=== PATIENT | female | born 1990 | race Caucasian/White ===

== ENCOUNTER 2016-04-17 17:00 | Emergency (ER) | payer MEDICAID ==
[~2016-04-17] VITALS: Ht 154.9 cm; Wt 61.7 kg
[~2016-04-17 17:00] MED LIST: ALPR.5T PO; AZIT-21 PO; AZTH250C PO; BENZ-13 PO; CEFP500T4 PO; CEFU500T PO; CLIN300C3 PO; DCS100C PO; DICL75TA2; FLUC100T PO; HDR2T PO; HYDR-2997; IBP600T1 PO; IBUP-1780 PO; LEVO500T78 PO; LOSA1TAB20 PO; METH5TAB PO; METR500T PO; MINO100T10 PO; MORP15TA30 PO; MORP60TA28; MTH10T PO; MUPI22OI2 TP; NAPR500T PO; NAPR500T3 PO; NF-ESOM40C; ONDN4T PO; OXYC-465 PO; PREG100C22 PO; PRM25T PO; PROP20TA5 PO; PROP40TA5 PO; QUET200T57; QUET50TA55 PO; SULF-222 PO; SULF1TAB35 PO; SULF1TAB38 PO; TRAM50TA2 PO; VNL75T PO
[2016-04-17] MEDS ORDERED: PROP40TA5 PO (17:25)
[2016-04-17] MEDS ORDERED: QUET300T2 PO (17:25)
[2016-04-17] MEDS ORDERED: SULF1TAB35 PO (17:25)
[2016-04-17] MEDS ORDERED: HALDOL PO (17:25)
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
[2016-04-17] MEDS ORDERED: LIDOCAINE/EPI 1%-1:100,000 (XYLOCAINE) 20ML INJ ONE (17:30)
[2016-04-17 17:35] VITALS: BP 158/111
== END 2016-04-17 17:36 | disposition home or self-care (01) ==
LOC: EDUNIT# 17:00 → ER 17:03
DX: N61.1 Abscess of the breast and nipple (principal); I10 Essential (primary) hypertension; Z79.899 Other long term (current) drug therapy
CPT/HCPCS: 87070; 87077; 87205; 99285

== ENCOUNTER → 2017-12-07 | Outpatient (CLI) | payer MEDICAID ==
[~2017-12-07] MED LIST changes: -BENZ-13 PO; +BENZ100C18 PO; +HALDOL PO; +NAPR-1071 PO; +NAPR-915 PO; -NAPR500T PO; -NAPR500T3 PO; +QUET300T2 PO
--- NOTE | 2017-12-07 13:55 | Diagnostic Imaging Report ---
INDICATION: survey. TECHNIQUE: Multiple real-time grayscale images were obtained over the gravid uterus. COMPARISON: None FINDINGS: There is a single live fetus in a cephalic presentation. heart rate was recorded at 132 beats per minute. The placenta is posterior. The amniotic fluid volume is normal. Cervical length is 4.4 cm. survey demonstrates the bladder and stomach to be unremarkable. The brain is unremarkable. There is a four-chamber heart. There is a three-vessel cord with normal insertion. The spine is unremarkable. There is some prominence of the renal pelvis bilaterally and findings suspicious for hydronephrosis. Followup is recommended. No other abnormalities are seen. Biometrical measurements are as follows: Biparietal 4.12 cm, age 18 weeks 4 days. Head circumference 15.05 cm, age 18 weeks 1 days. Abdominal circumference 13.63 cm, age 19 weeks 1 days. Femur length 3.32 cm, age 20 weeks 3 days. Sonographic estimate age: 19 weeks 1 days. Sonographic estimated date of delivery: 05/02/18. Estimated Weight: 296 gm (+/- 43 gm). LMP percentile: 75%. heart rate: 132 beats per minute. number: 1 of 1. IMPRESSION: Single IUP approximately 19 weeks 1 day gestational age. The estimated date of confinement sonographically is 05/02/2018. survey is unremarkable with the exception of possible bilateral hydronephrosis. Followup is recommended. Dictated by: Dictated on workstation # [id number]
== END ==
LOC: RAD 10:03
PROVIDERS: ATTEND Obstetrics & Gynecology
DX: Z36.89 Encounter for other specified antenatal screening (principal); Z3A.16 16 weeks gestation of pregnancy
CPT/HCPCS: 76805

== ENCOUNTER → 2018-04-05 | Outpatient (CLI) | payer MEDICAID ==
--- NOTE | 2018-04-05 13:24 | Diagnostic Imaging Report ---
INDICATION: Evaluate position. TECHNIQUE: Multiple real-time grayscale images were obtained over the gravid uterus. COMPARISON: 02/11/2018. FINDINGS: There is a single living intrauterine in breech presentation. Amniotic fluid index is 12.58. Placenta is posterior. There is no previa. The biometry correlates with gestational age of 35 weeks 5 days. Heart rate is 119 beats per minute and regular. Left kidney was not well visualized due to lie, although some mild hydronephrosis cannot be excluded. Remainder of the intra-abdominal structures are grossly unremarkable, although this is limited due to late gestational age. IMPRESSION: 1. Single living intrauterine with sonographically estimated gestational age of 35 weeks 5 days and estimated date of confinement of May 05, 2018. 2. Breech presentation with posterior placenta and no evidence of previa. 3. Questionable mild left hydronephrosis. Biometrical measurements are as follows: Biparietal 8.76 cm, age 35 weeks 3 days. Head circumference 33.48 cm, age 38 weeks 3 days. Abdominal circumference 30.51 cm, age 34 weeks 4 days. Femur length 6.68 cm, age 34 weeks 3 days. Sonographic estimate age: 35 weeks 5 days. Sonographic estimated date of delivery: 05/05/2018. Estimated Weight: 2548 gm (+/- 372 gm). LMP percentile: 23%. heart rate: 119 beats per minute. number: 1 of 1. Dictated by: Dictated on workstation # [id number]
== END ==
LOC: RAD 11:05
PROVIDERS: ATTEND Obstetrics & Gynecology
DX: O32.1XX0 Maternal care for breech presentation, not applicable or unspecified (principal); Z3A.35 35 weeks gestation of pregnancy
CPT/HCPCS: 76816

== ENCOUNTER 2018-04-11 11:59 | Outpatient (CLI) | payer MEDICAID ==
[~2018-04-11] VITALS: Ht 154.9 cm; Wt 93.6 kg
[2018-04-11] MEDS ORDERED: PREN-8 PO (12:18)
[2018-04-11] MEDS ORDERED: BUPR8TAB SL (12:18)
[2018-04-11 12:25] VITALS: BP 147/113
--- NOTE | 2018-04-11 13:20 | NUR ---
MESSAGE LEFT WITH DR. PETERSON NURSE REGARDING PT'S B/P.
== END 2018-04-11 13:25 | disposition home or self-care (01) ==
LOC: PREOP 11:59
PROVIDERS: ATTEND Obstetrics & Gynecology
DX: Z01.818 Encounter for other preprocedural examination (principal)
CPT/HCPCS: 87081

== ENCOUNTER 2018-04-12 10:55 | Inpatient (IN) | payer MEDICAID ==
[~2018-04-12] VITALS: Ht 154.9 cm; Wt 93.2 kg
[~2018-04-12 10:55] MED LIST changes: +BUPR8TAB SL; +PREN-8 PO
--- NOTE | 2018-04-12 10:55 | NUR ---
CLEM MUNOZ S presented to unit via AMBULATORY from HOME, accompanied by FAMILY FOR SCHEDULED DELIVERY. CLEM MUNOZ S weighed, gowned, voided, and to bed. EFHM and TOCO applied, VS taken. CLEM MUNOZ S oriented to bed controls, call light, TV, heat, and A/C controls.
[2018-04-12 11:11] VITALS: BP 137/93
[2018-04-12] MEDS ORDERED: metroNIDAZOLE 500MG/100ML IVPB 100 ML ONE (11:31)
[2018-04-12] MEDS ORDERED: FAMOTIDINE 20MG/2ML IV (PEPCID) ONE (11:31)
[2018-04-12] MEDS ORDERED: METOCLOPRAMIDE INJ 10 MG/2 ML (REGLAN) ONE (11:31)
[2018-04-12] MEDS ORDERED: LACTATED RINGERS 1,000 ML IV ONE (11:31)
[2018-04-12] MEDS ORDERED: CITRIC ACID/SOB CIT (BICITRA) 30 ML UDC ONE (11:31)
[2018-04-12] MEDS ORDERED: CITRIC ACID/SOB CIT (BICITRA) 30 ML UDC PO ONE (11:45)
[2018-04-12] MEDS ORDERED: metroNIDAZOLE 500MG/100ML IVPB 100 ML IV ONE (11:45)
[2018-04-12] MEDS ORDERED: FAMOTIDINE 20MG/2ML IV (PEPCID) IV ONE (11:45)
[2018-04-12] MEDS ORDERED: METOCLOPRAMIDE INJ 10 MG/2 ML (REGLAN) IV ONE (11:45)
[2018-04-12] MEDS ORDERED: WATER (STERILE) FOR INJECTION 20 ML ONE (11:45)
[2018-04-12] MEDS ORDERED: ceFAZolin INJECTION 1,000 MG ONE (11:45)
[2018-04-12] MEDS ORDERED: CATHETER FLUSH 10 ML SYR IV PRN (11:45)
[2018-04-12] MEDS ORDERED: ceFAZolin INJECTION 1,000 MG in WATER (STERILE) FOR INJECTION 10 ML IV ONE (11:45)
[2018-04-12] MEDS ORDERED: OXYTOCIN/NORMAL SALINE 500 ML IV ONE ×2 (11:49→13:21)
[2018-04-12] MEDS ORDERED: ONDANSETRON 4 MG/2 ML (SDV) Z0FRAN ONE ×2 (11:49→13:21)
[2018-04-12] MEDS ORDERED: fentaNYL INJECTION 100 MCG/2 ML AMP ONE (11:49)
--- NOTE | 2018-04-12 11:50 | Progress Note-Pre Operative ---
Pre-Operative Progress Note H&P Reviewed The H&P was reviewed, patient examined and no changes noted. Date Seen by Provider: Apr 12, 2018 Time Seen by Provider: 11:45 Date H&P Reviewed: Apr 12, 2018 Time H&P Reviewed: 10:30 Pre-Operative Diagnosis: gestational hypertension/preeclampsia, breech, hep C, 37 weeks MALI HOLLOWAY DO Apr 12, 2018 11:50
[2018-04-12] MEDS ORDERED: ROPIVACAINE 5MG/ML 30ML VIAL ONE (11:51)
[2018-04-12] MEDS ORDERED: LIDOCAINE PF 2% 5 ML (XYLOCAINE) VIAL ONE (11:57)
[2018-04-12] MEDS ORDERED: BUPIVACAINE SPINAL 0.75% (SENSORCAINE) 2 ML AMP ONE (11:57)
[2018-04-12 12:07] LABS: BASOPHILS % (AUTO) 0 % (0-10); EOSINOPHILS # (AUTO) 0.1 10^3/uL (0.0-0.3); EOSINOPHILS % (AUTO) 1 % (0-10); HEMATOCRIT 36 % (35-52); HEMOGLOBIN 11.9 G/DL (11.5-16.0); LYMPHOCYTES # (AUTO) 2.3 X 10^3 (1.0-4.0); LYMPHOCYTES % (AUTO) 25 % (12-44); MEAN CORPUSCULAR HEMOGLOBIN 27 PG (25-34); MEAN CORPUSCULAR HGB CONC 33 G/DL (32-36); MEAN CORPUSCULAR VOLUME 82 FL (80-99); MEAN PLATELET VOLUME 9.4 FL (7.4-10.4); MONOCYTES # (AUTO) 0.6 X 10^3 (0.0-1.0); MONOCYTES % (AUTO) 6 % (0-12); NEUTROPHILS % (AUTO) 68 % (42-75); PLATELET COUNT 350 10^3/uL (130-400); RED CELL DISTRIBUTION WIDTH 14.1 % (10.0-14.5); WHITE BLOOD COUNT 8.9 10^3/uL (4.3-11.0)
[2018-04-12] MEDS ORDERED: KETOROLAC 30 MG/ML VIAL ONE (12:09)
[2018-04-12] MEDS ORDERED: PHENYLEPHRINE 100 MCG/ML 10 ML (ANESTHESIA) SYR ONE (12:39)
[2018-04-12] MEDS ORDERED: D5 LR IV SOLUTION 1,000 ML IV SCH (13:38)
[2018-04-12] MEDS ORDERED: OXYTOCIN/NORMAL SALINE 500 ML IV SCH (13:38)
[2018-04-12] MEDS ORDERED: TETANUS,DIPTH,PERTUSS P/F (BOOSTRIX) 0.5 ML VIAL IM SCH (13:45)
[2018-04-12] MEDS ORDERED: MEASLES,MUMPS,RUBELLA 1 EA INJ SC SCH (13:45)
[2018-04-12] MEDS ORDERED: HYDROmorphone 2 MG/ML VIAL (DILAUDID) IV PRN (13:45)
--- NOTE | 2018-04-12 13:49 | Cesarean Section Operative ---
Procedure Procedure Note Pre-operative Diagnosis: Anjali Bingham is a 30 /Para 2 /1 , Gestational Age 37 weeks with preeclampsia, GBS +, Hep C +, Breech Post-operative Diagnosis: same Procedure: Primary low transverse section Physician: MALI HOLLOWAY Estimated blood loss: 500 mL Disposition: stable Findings: Viable female , Apgars pending, weight pending, intact placenta, 3vc, normal appearing uterus, tubes, and ovaries. Indications:Anjali Bingham is a 30 /Para 2 /1 ,Gestational Age 37 weeks with preeclampsia, GBS +, Hep C +, Breech presenting for primary section. Patient has had worsening blood pressures. Yesterday was 174/110. Plan to proceed with delivery but due to continued breech presentation, recommend section. We had previously discussed External Cephalic Version. however, due to the blood pressures and patient concerns with risks of version, will proceed with primary section. Procedure Details: The patient was seen in pre-op and the procedure was discussed with the patient in full, including the risks, benefits, and alternatives. All questions were answered. The patient was taken to the operating room and a time out was performed, verifying patient and procedure. After spinal anesthesia was placed by our anesthesia colleagues, the patient was placed in the dorsal supine with leftward tilt for uterine displacement.~ Her abdomen was then prepped and draped in the typical sterile fashion. A Pfannenstiel skin incision was made using a scalpel and carried down through the underlying fascia. The fascia was incised in the midline and tented up using Nabil clamps. On both the inferior and superior fascia side the rectus muscle was dissected off bluntly and sharply using Shell scissors. The peritoneum was identified and entered bluntly in the midline. This was then stretched laterally using manual strength. After entering the abdominal cavity and confirming lack of intraperitoneal adhesions, a large Raymond retractor was placed and the lower uterine segment was visualized. A scalpel was utilized to make a low transverse uterine incision. Amniotomy was performed with an Allis clamp with return of clear fluid. The baby was in a maida breech presention with the right hip presenting. The infant's right leg was flexed and then delivered. The left leg was flexed and delivered. I then deilvered up to the scapulae and then rotated to allow delivery of the head which was flexed posteriorly. I brought the arms flexed across the chest individually. I then delivered the head with the Zambziwk-Jawreck-Siza maneuver. outh and nares were suctioned with bulb suction. After the umbilical cord was clamped and cut, the was handed off to the pediatric staff. A sample of cord blood was then obtained. The placenta was delivered intact via uterine massage. The uterus was cleared of all clots and debris. The uterine incision was closed using 0 Vicryl in a running locked fashion. A second imbricated layer was placed using 0 Vicryl in a running fashion as well. The uterus was flexed forward and the posterior rectouterine space was inspected and cleared of all clots and debris. The bilateral tubes and ovaries appeared normal. There was a filmy adhesion of the left fibriae to the omentum. The abdominal gutters were cleared of all clots and debris. A final check of the uterine incision showed it to be hemostatic. The peritoneum was closed using 3-0 Vicryl in a running fashion. The fascia was closed with 0 Vicryl in a running fashion. The subcutaneous space was hemostatic , and irrigated. The subcutaneous space was closed with 3-0 Vicryl in several single interrupted stitches. The skin was then closed using 4-0 Monocryl in a running subcuticular fashion. The skin edges were reapproximated together and were hemostatic. A pressure dressing was applied. All sponge, lap and needle counts were correct at the end of the procedure per nursing. Vitals - Labs Labs Laboratory Tests 04/12/18 11:55: White Blood Count 8.9, Red Blood Count 4.38, Hemoglobin 11.9, Hematocrit 36, Mean Corpuscular Volume 82, Mean Corpuscular Hemoglobin 27, Mean Corpuscular Hemoglobin Concent 33, Red Cell Distribution Width 14.1, Platelet Count 350, Mean Platelet Volume 9.4, Neutrophils (%) (Auto) 68, Lymphocytes (%) (Auto) 25, Monocytes (%) (Auto) 6, Eosinophils (%) (Auto) 1, Basophils (%) (Auto) 0, Neutrophils # (Auto) 6.0, Lymphocytes # (Auto) 2.3, Monocytes # (Auto) 0.6, Eosinophils # (Auto) 0.1, Basophils # (Auto) 0.0 MALI HOLLOWAY DO Apr 12, 2018 13:49
[2018-04-12] MEDS ORDERED: CATHETER FLUSH 10 ML SYR IV SCH (14:00)
[2018-04-12] MEDS ORDERED: LACTATED RINGERS 1,000 ML IV PRN (15:39)
[2018-04-12 16:05] VITALS: BP 133/90
--- NOTE | 2018-04-12 18:20 | NUR ---
Pt up in room, mark care done, personal clothing on, no urge to void. To nursery to see baby.
[2018-04-12] MEDS: KETOROLAC 30 MG/ML VIAL IVP SCH (19:10)
--- NOTE | 2018-04-12 19:13 | NUR ---
Up to void - 200ml. Tolerated well.
[2018-04-12] MEDS: ACETAMINOPHEN 500 MG TAB (TYLENOL) PO SCH (20:12)
[2018-04-12 20:16] VITALS: BP 152/95
[2018-04-12] MEDS ORDERED: FLU QUADRIvalent (5+ YOA) 2018-2019 (AFLURIA) 0.5 ML IM ONE (20:30)
[2018-04-13] MEDS: KETOROLAC 30 MG/ML VIAL IVP SCH ×2 (00:27→05:55)
[2018-04-13 00:29] VITALS: BP 130/76
[2018-04-13] MEDS: ACETAMINOPHEN 500 MG TAB (TYLENOL) PO SCH ×2 (04:22→14:50)
[2018-04-13 04:23] VITALS: BP 116/68
[2018-04-13] MEDS ORDERED: MILK OF MAGNESIA 400 MG/5 ML 30 ML UDC PO PRN (05:00)
[2018-04-13 06:09] LABS: BASOPHILS % (AUTO) 0 % (0-10); EOSINOPHILS # (AUTO) 0.1 10^3/uL (0.0-0.3); EOSINOPHILS % (AUTO) 1 % (0-10); HEMATOCRIT 30 % (35-52); HEMOGLOBIN 9.6 G/DL (11.5-16.0); LYMPHOCYTES # (AUTO) 2.5 X 10^3 (1.0-4.0); LYMPHOCYTES % (AUTO) 27 % (12-44); MEAN CORPUSCULAR HEMOGLOBIN 27 PG (25-34); MEAN CORPUSCULAR HGB CONC 32 G/DL (32-36); MEAN CORPUSCULAR VOLUME 85 FL (80-99); MEAN PLATELET VOLUME 9.3 FL (7.4-10.4); MONOCYTES # (AUTO) 0.7 X 10^3 (0.0-1.0); MONOCYTES % (AUTO) 8 % (0-12); NEUTROPHILS # (AUTO) 5.9 X 10^3 (1.8-7.8); NEUTROPHILS % (AUTO) 64 % (42-75); PLATELET COUNT 315 10^3/uL (130-400); RED CELL DISTRIBUTION WIDTH 13.8 % (10.0-14.5); WHITE BLOOD COUNT 9.3 10^3/uL (4.3-11.0)
[2018-04-13 07:46] VITALS: BP 137/87
[2018-04-13] MEDS: DOCUSATE SODIUM 100 MG (COLACE) CAP PO SCH ×2 (08:23→20:52)
--- NOTE | 2018-04-13 09:00 | Postpartum Progress Note ---
Post Op Post-operative Day #1 s/p PLTCS, breech, preeclampsia, history of opiate usage now controlled on suboxone Subjective: Patient is without complaints. Ambulating, voiding after torres removed. Tolerating a regular diet without nausea or vomiting. Normal lochia. Pain is well controlled with oral pain medications. Passing flatus. [] feeding. [] Objective: Laboratory Tests Test 04/12/18 11:55 04/13/18 05:35 Range/Units White Blood Count 8.9 9.3 4.3-11.0 10^3/uL Red Blood Count 4.38 3.54 L 4.35-5.85 10^6/uL Hemoglobin 11.9 9.6 L 11.5-16.0 G/DL Hematocrit 36 30 L 35-52 % Mean Corpuscular Volume 82 85 80-99 FL Mean Corpuscular Hemoglobin 27 27 25-34 PG Mean Corpuscular Hemoglobin Concent 33 32 32-36 G/DL Red Cell Distribution Width 14.1 13.8 10.0-14.5 % Platelet Count 350 315 130-400 10^3/uL Mean Platelet Volume 9.4 9.3 7.4-10.4 FL Neutrophils (%) (Auto) 68 64 42-75 % Lymphocytes (%) (Auto) 25 27 12-44 % Monocytes (%) (Auto) 6 8 0-12 % Eosinophils (%) (Auto) 1 1 0-10 % Basophils (%) (Auto) 0 0 0-10 % Neutrophils # (Auto) 6.0 5.9 1.8-7.8 X 10^3 Lymphocytes # (Auto) 2.3 2.5 1.0-4.0 X 10^3 Monocytes # (Auto) 0.6 0.7 0.0-1.0 X 10^3 Eosinophils # (Auto) 0.1 0.1 0.0-0.3 10^3/uL Basophils # (Auto) 0.0 0.0 0.0-0.1 10^3/uL 04/13/18 04/13/18 04/13/18 00:29 04:23 07:46 Temp 96.8 97.8 97.3 Pulse 62 75 75 Resp 16 16 18 B/P (MAP) 130/76 (94) 116/68 (84) 137/87 (104) Pulse Ox 97 98 O2 Delivery Room Air Room Air 04/13/18 00:00 Intake Total 1500 ml Output Total 750 ml Balance 750 ml Physical Exam: General - Alert and oriented, no apparent distress Abdomen - Soft, appropriately tender to palpation, non-distended, fundus firm at umbilicus Incision - clean, dry and intact; no erythema or induration, no drainage Extremities - no edema, negative Aidan's bilaterally [] Assessment: [] post-operative day # [], status post []. Recovering well, hemodynamically stable Acute blood loss anemia [] Plan: Routine post-operative care. Encourage breast feeding. Encourage ambulation. VTE prophylaxis: SCDs. Ferrous sulfate supplementation. Plan for discharge [] Vitals - Labs Vital Signs - I&O Vital Signs Date Time Temp Pulse Resp B/P (MAP) Pulse Ox O2 Delivery O2 Flow Rate FiO2 04/13/18 07:46 97.3 75 18 137/87 (104) 98 Room Air 04/13/18 04:23 97.8 75 16 116/68 (84) 04/13/18 00:29 96.8 62 16 130/76 (94) 97 Room Air 04/12/18 20:45 Room Air 04/12/18 20:16 97.3 97 16 152/95 (114) 97 Room Air 04/12/18 16:05 97.7 80 16 133/90 (104) 97 Room Air 04/12/18 11:11 97.4 82 18 137/93 (108) Room Air I & O 04/13/18 07:00 Intake Total 1500 ml Output Total 750 ml Balance 750 ml Labs Laboratory Tests 04/12/18 11:55: White Blood Count 8.9, Red Blood Count 4.38, Hemoglobin 11.9, Hematocrit 36, Mean Corpuscular Volume 82, Mean Corpuscular Hemoglobin 27, Mean Corpuscular Hemoglobin Concent 33, Red Cell Distribution Width 14.1, Platelet Count 350, Mean Platelet Volume 9.4, Neutrophils (%) (Auto) 68, Lymphocytes (%) (Auto) 25, Monocytes (%) (Auto) 6, Eosinophils (%) (Auto) 1, Basophils (%) (Auto) 0, Neutrophils # (Auto) 6.0, Lymphocytes # (Auto) 2.3, Monocytes # (Auto) 0.6, Eosinophils # (Auto) 0.1, Basophils # (Auto) 0.0 04/13/18 05:35: White Blood Count 9.3, Red Blood Count 3.54L, Hemoglobin 9.6L, Hematocrit 30L, Mean Corpuscular Volume 85, Mean Corpuscular Hemoglobin 27, Mean Corpuscular Hemoglobin Concent 32, Red Cell Distribution Width 13.8, Platelet Count 315, Mean Platelet Volume 9.3, Neutrophils (%) (Auto) 64, Lymphocytes (%) (Auto) 27, Monocytes (%) (Auto) 8, Eosinophils (%) (Auto) 1, Basophils (%) (Auto) 0, Neutrophils # (Auto) 5.9, Lymphocytes # (Auto) 2.5, Monocytes # (Auto) 0.7, Eosinophils # (Auto) 0.1, Basophils # (Auto) 0.0 MALI HOLLOWAY DO Apr 13, 2018 09:00
--- NOTE | 2018-04-13 11:18 | NUR ---
CM/SS completed online DCF report with the buprenorphine use and prior drug history. Intake ID # [id number].
[2018-04-13] MEDS: IBUPROFEN 600 MG (MOTRIN) TAB PO SCH ×2 (12:37→18:15)
[2018-04-13 12:38] VITALS: BP 130/94
--- NOTE | 2018-04-13 12:55 | NUR ---
Pt is listed as [employer] but states she has not been active.
--- NOTE | 2018-04-13 14:07 | NUR ---
CM/NILSA spoke with the patient in regards to the consult for SS. She stated that she has been in Suboxone program with [facility] since Feb 2017. She reports she has all she needs for baby. Patient does participate in WIC. She was familiar with [facility] but wanted more information before was interested in a referral being made. Will continue to follow.
--- NOTE | 2018-04-13 14:49 | Anesthesia-Regional Post-Op ---
Regional Patient Condition Mental Status: Alert, Oriented x3 Circulation: Same as Pre-Op Headache: Absent Sensation: Full Recovery Motor Block: Absent Post Op Complications Complications None Follow Up Care/Instructions Patient Instructions None needed. Anesthesia/Patient Condition Patient is doing well, no complaints, stable vital signs, no apparent adverse anesthesia problems. ANALIA BELL DO Apr 13, 2018 14:49
[2018-04-13] MEDS ORDERED: FLU QUADRIvalent (5+ YOA) 2018-2019 (AFLURIA) 0.5 ML IM ONE (16:00)
[2018-04-13 16:11] VITALS: BP 140/76
[2018-04-13 22:00] VITALS: BP 141/96
[2018-04-14] MEDS: ACETAMINOPHEN 500 MG TAB (TYLENOL) PO SCH ×5 (00:42→23:59)
[2018-04-14] MEDS: IBUPROFEN 600 MG (MOTRIN) TAB PO SCH ×4 (00:43→18:41)
[2018-04-14 03:59] VITALS: BP 152/96
[2018-04-14 07:57] VITALS: BP 135/85
--- NOTE | 2018-04-14 08:00 | NUR ---
Pt up in room. C/O of swelling in feet. took pt b/p standing it was 164/105. Had pt rest on lt side with HOB flat. b/p 116/70. then repeated in a sitting position 135/85. Pt denies, blurred vision, no chest pain, no SOB,. No s/s of distress. Pt encourage to rest at this time. Will notify Dr Trujillo on rounds.
[2018-04-14] MEDS: DOCUSATE SODIUM 100 MG (COLACE) CAP PO SCH ×3 (08:13→21:08)
--- NOTE | 2018-04-14 10:15 | NUR ---
Dr Trujillo to see pt. This nurse reported pt b/p's and edema 2+ bilat in lower extremities. Dr Trujillo will place order for Lasix.
[2018-04-14 12:22] VITALS: BP 123/76
[2018-04-14] MEDS ORDERED: FUROSEMIDE 20 MG (LASIX) TAB PO SCH (13:30)
--- NOTE | 2018-04-14 13:30 | Postpartum Progress Note ---
Post Op Post-operative Day #2 s/p PLTCS Baby under bili lights in nursery so patient has been in the nursery alot and up on her feet. complains of increased LE edema, but pain is controlled. BP has been sl increased but most recent 164/104. Repeat on her side was 118/70 and then 130/78. Subjective: Patient is without complaints. Ambulating, voiding after torres removed. Tolerating a regular diet without nausea or vomiting. Normal lochia. Pain is well controlled with oral pain medications. Passing flatus. bottle feeding. Objective: 04/14/18 04/14/18 04/14/18 03:59 07:57 12:22 Temp 98.4 98.0 97.9 Pulse 74 70 80 Resp 18 20 20 B/P (MAP) 152/96 (114) 135/85 (102) 123/76 (92) Pulse Ox 98 98 97 O2 Delivery Room Air Room Air Room Air 04/14/18 00:00 Intake Total 1450 ml Output Total 1400 ml Balance 50 ml Physical Exam: General - Alert and oriented, no apparent distress Abdomen - Soft, appropriately tender to palpation, non-distended, fundus firm at umbilicus Incision - clean, dry and intact; no erythema or induration, no drainage Extremities - 3-4+ pitting edema, negative Aidan's bilaterally Assessment: 1. post-operative day # 2, status post PLTCS. Recovering well, hemodynamically stable Acute blood loss anemia 3.. preeclampsia with new increase in edema and BP 4. Hep C 5. history of drug use maintained on Buprenorphine Plan: Routine post-operative care. Encourage breast feeding. Encourage ambulation. VTE prophylaxis: SCDs. Ferrous sulfate supplementation. Start Lasix Plan for discharge to parent room tomorrow. Will bc DC with enough oxycodone for weekend and then will follow up with Dr. Moses. Vitals - Labs Vital Signs - I&O Vital Signs Date Time Temp Pulse Resp B/P (MAP) Pulse Ox O2 Delivery O2 Flow Rate FiO2 04/14/18 12:22 97.9 80 20 123/76 (92) 97 Room Air 04/14/18 07:57 98.0 70 20 135/85 (102) 98 Room Air 04/14/18 03:59 98.4 74 18 152/96 (114) 98 Room Air 04/13/18 22:00 97.6 84 18 141/96 (111) 99 Room Air 04/13/18 16:11 97.8 82 18 140/76 (97) 97 Room Air I & O 04/14/18 07:00 Intake Total 2050 ml Output Total 1400 ml Balance 650 ml MALI HOLLOWAY DO Apr 14, 2018 13:30
[2018-04-14] MEDS ORDERED: DOCU100C37 PO (13:35)
[2018-04-14] MEDS ORDERED: IBUP-844 PO (13:35)
[2018-04-14] MEDS ORDERED: ACET-77 PO (13:35)
[2018-04-14] MEDS ORDERED: Oxycodone Hcl PO (13:35)
[2018-04-14] MEDS ORDERED: FURO-125 PO (13:35)
--- NOTE | 2018-04-14 13:38 | Discharge Inst-Women's Service ---
Discharge Inst-Women's Serv Depart Medication/Instructions New, Converted or Re-Newed RX: RX on Chart Final Diagnosis breech presentation preeclampsia history of buprenorphine usage hep C Consults/Follow Up Additional Follow Up: Yes (1 week for incision check and BP check. 6 weeks for PP exam) Activity Activity: Activity as Tolerated Driving Instructions: No Driving for 1 Week NO SMOKING: NO SMOKING Nothing Inside Vagina: No Douching, No [place], No Tampons Diet Discharge Diet: No Restrictions Symptoms to Report to DrDerek: Bleeding Excessive, Pain Increased, Fever Over 101 Degrees F, Vaginal Bleeding Increase, Cramps in Feet or Legs, Vaginal Discharge Foul For Any Problems or Questions: Contact Your Physician Skin/Wound Care Infection Signs and Symptoms: Increased Redness, Foul Odor of Wound, Increased Drainage, Increased Swelling, Temperature Above 101 F Operative Area Clean and Dry: Keep Incision Clean/Dry Stitches/Lynda/Dermabond: Dermabond Bathing Instructions: MALI Cervantes DO Apr 14, 2018 13:38
[2018-04-14 16:24] VITALS: BP 125/59
[2018-04-14 20:57] VITALS: BP 131/72
--- NOTE | 2018-04-14 21:00 | NUR ---
PM assessment completed. 2+ edema noted in lower extremities. This nurse encouraged pt. to elevate her feet while in bed. VSS. Incision is open to air, clean, dry, and intact. vaginal bleeding is appropriate, fundus remains firm. No questions or concerns voiced at this time. will continue to monitor. call light within reach.
[2018-04-15] VITALS: BP 131/83
[2018-04-15 05:51] VITALS: BP 141/86
[2018-04-15] MEDS: IBUPROFEN 600 MG (MOTRIN) TAB PO SCH ×3 (05:54→12:40)
[2018-04-15 08:30] VITALS: BP 131/86
--- NOTE | 2018-04-15 08:30 | NUR ---
A.M. ASSESSMENT COMPLETED. VSS.
--- NOTE | 2018-04-15 08:45 | NUR ---
DR. HOLLOWAY CALLED TO CHECK ON PT.
[2018-04-15] MEDS ORDERED: FUROSEMIDE 20 MG (LASIX) TAB PO SCH (09:00)
[2018-04-15] MEDS: DOCUSATE SODIUM 100 MG (COLACE) CAP PO SCH (09:18)
[2018-04-15] MEDS: ACETAMINOPHEN 500 MG TAB (TYLENOL) PO SCH (09:20)
--- NOTE | 2018-04-15 11:30 | NUR ---
PT IN NURSERY TO SEE .
--- NOTE | 2018-04-15 11:40 | NUR ---
INFANT TRANSFERRED TO [facility]. PT TEARFUL. PLAN FOR DISCHARGE.
--- NOTE | 2018-04-15 12:50 | NUR ---
DISCHARGE INSTRUCTIONS REVIEWED WITH COPY TO PT. STATES UNDERSTANDING OF ALL INSTRUCTIONS AND NEED TO F/U SCHEDULED AND NEEDED.
[2018-04-15 13:00] VITALS: BP 131/86
--- NOTE | 2018-04-15 13:00 | NUR ---
DISMISSED VIA W/C TO FAMILY CAR IN STABLE CONDITION ACC BY MOTHER, CHILD, AND SADE KEEN.
== END 2018-04-15 13:00 | disposition home or self-care (01) | DRG 787 ==
LOC: LDRP 10:55
PROVIDERS: ADMIT Obstetrics & Gynecology; ATTEND Obstetrics & Gynecology
PROC: 10D00Z1 Extraction of Products of Conception, Low, Open Approach (ICD-10-PCS; principal; 2018-04-12 12:15)
DX: O32.1XX0 Maternal care for breech presentation, not applicable or unspecified (principal); O14.94 Unspecified pre-eclampsia, complicating childbirth; O99.824 Streptococcus B carrier state complicating childbirth; O99.324 Drug use complicating childbirth; F11.21 Opioid dependence, in remission; O98.42 Viral hepatitis complicating childbirth; B18.2 Chronic viral hepatitis C; O99.334 Smoking (tobacco) complicating childbirth; F17.210 Nicotine dependence, cigarettes, uncomplicated; O90.81 Anemia of the puerperium; D62 Acute posthemorrhagic anemia; Z37.0 Single live birth; Z3A.37 37 weeks gestation of pregnancy
CPT/HCPCS: 36415; 85025; 86850; 86870; 86900; 86901; 86902; 90471; 90686; 90715; 94664

== ENCOUNTER 2019-11-20 07:37 | Emergency (ER) | payer MEDICAID ==
[~2019-11-20] VITALS: Ht 149 cm; Wt 82.0 kg
[~2019-11-20 07:37] MED LIST changes: +ACET-78 PO; +DOCU100C37 PO; +FURO-125 PO; +IBUP-844 PO; +Oxycodone Hcl PO; +QUET200T29; -QUET200T57; -TRAM50TA2 PO; +TRM50T PO
[2019-11-20] MEDS ORDERED: ONDANSETRON 4 MG (ZOFRAN) ORAL DISSOLVE TAB PO ONE (08:15)
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
[2019-11-20] MEDS ORDERED: SULF1TAB35 PO (08:28)
[2019-11-20 08:35] VITALS: BP 131/82
== END 2019-11-20 08:35 | disposition home or self-care (01) ==
LOC: EDUNIT# 07:37 → ER 07:38
DX: L02.413 Cutaneous abscess of right upper limb (principal); G89.29 Other chronic pain; M54.9 Dorsalgia, unspecified; Z88.0 Allergy status to penicillin; Z88.8 Allergy status to other drugs, medicaments and biological substances; Z87.891 Personal history of nicotine dependence; Z82.49 Family history of ischemic heart disease and other diseases of the circulatory system; Z83.3 Family history of diabetes mellitus; Z79.891 Long term (current) use of opiate analgesic
CPT/HCPCS: 10060

== ENCOUNTER 2021-08-14 16:02 | Emergency (ER) | payer MEDICAID ==
[~2021-08-14] VITALS: Ht 154.9 cm; Wt 63.5 kg
[~2021-08-14 16:02] MED LIST changes: +QUET50TA23 PO; -QUET50TA55 PO; -SULF1TAB35 PO
[2021-08-14] MEDS ORDERED: KETOROLAC 30 MG/ML VIAL IM ONE (17:00)
[2021-08-14] MEDS ORDERED: ALPRAZolam 0.25 MG (XANAX) TAB PO ONE (17:00)
[2021-08-14] MEDS ORDERED: SULF1TAB38 PO (17:38)
[2021-08-14] MEDS ORDERED: DOXY100T2 PO (17:38)
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
[2021-08-14] MEDS ORDERED: TRIM/SULFAMETH 160/800 (SEPTRA DS) TAB PO ONE (17:45)
[2021-08-14] MEDS ORDERED: DOXYCYCLINE 100 MG (VIBRAMYCIN) TABLET PO ONE (17:45)
[2021-08-14 17:59] VITALS: BP 144/110
== END 2021-08-14 18:10 | disposition home or self-care (01) ==
LOC: EDUNIT# 16:02 → ER 16:08
DX: L03.115 Cellulitis of right lower limb (principal); F17.210 Nicotine dependence, cigarettes, uncomplicated
CPT/HCPCS: 84703; 99282

== ENCOUNTER 2021-08-18 18:42 | Emergency (ER) | payer MEDICAID ==
[~2021-08-18 18:42] MED LIST changes: +DOXY100T2 PO
[2021-08-18 19:26] VITALS: BP 148/112
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
[2021-08-18] MEDS ORDERED: ALPRAZolam 0.5 MG (XANAX) TAB PO ONE (20:15)
[2021-08-18] MEDS ORDERED: LIDOCAINE 1% INJ 20 ML VIAL INJ ONE (20:15)
[2021-08-18] MEDS ORDERED: IBUPROFEN 600 MG (MOTRIN) TAB PO ONE (21:00)
== END 2021-08-18 21:06 | disposition home or self-care (01) ==
LOC: EDUNIT# 18:42 → ER 18:43
DX: L02.415 Cutaneous abscess of right lower limb (principal); F17.200 Nicotine dependence, unspecified, uncomplicated; Z88.0 Allergy status to penicillin; Z28.310 Unvaccinated for COVID-19
CPT/HCPCS: 99283

== ENCOUNTER 2022-10-12 16:08 | Emergency (ER) | payer MEDICAID, OTHER ==
[~2022-10-12] VITALS: Ht 154 cm; Wt 81.0 kg
[2022-10-12] MEDS ORDERED: IBUPROFEN 600 MG TABLET PO ONE (18:00)
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
--- NOTE | 2022-10-12 18:14 | Diagnostic Imaging Report ---
INDICATION: Cough, COVID positive patient. COMPARISON: 11/19/2014 FINDINGS: Single frontal view of the chest demonstrates normal heart size and pulmonary vascularity. The lungs are well aerated and clear. No large pleural effusion or pneumothorax is seen. The visualized osseous structures show no acute abnormalities. IMPRESSION: 1. No acute cardiopulmonary process. Dictated by: Dictated on workstation # [id number]
[2022-10-12 18:29] VITALS: BP 159/92
[2022-10-13] MEDS ORDERED: LAMO100T5 PO (14:23)
[2022-10-13] MEDS ORDERED: NALT50TA PO (14:23)
[2022-10-13] MEDS ORDERED: PALI6TAB6 PO (14:23)
[2022-10-13] MEDS ORDERED: QUET50TA23 PO (14:23)
== END 2022-10-12 18:29 | disposition home or self-care (01) ==
LOC: EDUNIT# 16:08 → ER 16:12
DX: U07.1 COVID-19 (principal); R05.9 Cough, unspecified; R53.83 Other fatigue; R50.9 Fever, unspecified; I10 Essential (primary) hypertension
CPT/HCPCS: 71045; 87636

== ENCOUNTER 2022-10-12 20:48 | Observation (INO) | payer OTHER ==
[~2022-10-12] VITALS: Ht 154 cm; Wt 82.9 kg
[2022-10-12 21:04] LABS: LYMPHOCYTES # (AUTO) 0.8 10^3/uL (1.0-4.0); MEAN CORPUSCULAR VOLUME 88 fL (80-99)
[2022-10-12 21:06] LABS: BASOPHILS # (AUTO) 0.1 10^3/uL (0.0-0.1); BASOPHILS % (AUTO) 1 % (0-10); EOSINOPHILS % (AUTO) 0 % (0-10); HEMATOCRIT 40 % (35-52); HEMOGLOBIN 13.8 g/dL (11.5-16.0); LYMPHOCYTES % (AUTO) 13 % (12-44); MEAN CORPUSCULAR HEMOGLOBIN 30 pg (25-34); MEAN CORPUSCULAR HGB CONC 35 g/dL (32-36); MEAN PLATELET VOLUME 9.4 fL (9.0-12.2); MONOCYTES # (AUTO) 0.7 10^3/uL (0.0-1.0); MONOCYTES % (AUTO) 12 % (0-12); NEUTROPHILS # (AUTO) 4.4 10^3/uL (1.8-7.8); NEUTROPHILS % (AUTO) 73 % (42-75); PLATELET COUNT 293 10^3/uL (130-400)
[2022-10-12 21:15] LABS: INR 0.9 (0.8-1.4); PROTHROMBIN TIME PATIENT 12.8 SEC (12.2-14.7)
[2022-10-12 21:25] LABS: ALANINE AMINOTRANSFERASE 12 U/L (0-55); ALKALINE PHOSPHATASE 46 U/L (40-136); BILIRUBIN,TOTAL 0.4 MG/DL (0.1-1.0); BUN/CREATININE RATIO 12; CALCIUM 8.8 MG/DL (8.5-10.1); CARBON DIOXIDE 21 MMOL/L (21-32); CHLORIDE 106 MMOL/L (98-107); CREATININE SERUM 0.75 MG/DL (0.60-1.30); GFR ESTIMATED 107; GLUCOSE 97 MG/DL (70-105); MAGNESIUM 1.9 MG/DL (1.6-2.4); POTASSIUM 3.7 MMOL/L (3.6-5.0); SODIUM 138 MMOL/L (135-145)
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
[2022-10-12] MEDS ORDERED: PANTOPRAZOLE INJECTION 40 MG VIAL IV ONE (21:45)
[2022-10-12] MEDS ORDERED: ONDANSETRON INJECTION 4 MG/2 ML (SDV) IVP ONE (21:45)
--- NOTE | 2022-10-12 21:59 | Diagnostic Imaging Report ---
INDICATION: Chest pain COMPARISON: 10/12/2022 FINDINGS: Single frontal view of the chest demonstrates normal heart size and pulmonary vascularity. The lungs are well aerated and clear. No large pleural effusion or pneumothorax is seen. The visualized osseous structures show no acute abnormalities. IMPRESSION: 1. No acute cardiopulmonary process. Dictated by: Dictated on workstation # [id number]
[2022-10-12] MEDS ORDERED: LACTATED RINGERS 1,000 ML 1,000 ML IV ONE (22:00)
[2022-10-13] VITALS (11 sets, daily range): BP systolic 102–138; BP diastolic 61–109
[2022-10-13] MEDS ORDERED: LACTATED RINGERS 1,000 ML 1,000 ML IV ONE (02:25)
[2022-10-13] MEDS ORDERED: IBUPROFEN 600 MG TABLET PO PRN (03:15)
[2022-10-13] MEDS ORDERED: ONDANSETRON INJECTION 4 MG/2 ML (SDV) IV PRN (03:15)
[2022-10-13] MEDS: LACTATED RINGERS 1,000 ML 1,000 ML IV SCH ×3 (03:18→14:59)
[2022-10-13 06:09] LABS: CHOLESTEROL 211 MG/DL (< 200); HDL CHOLESTEROL 50 MG/DL (40-60); TRIGLYCERIDES 102 MG/DL (<150); VLDL CHOLESTEROL 20 MG/DL (5-40)
[2022-10-13] MEDS: ACETAMINOPHEN 500 MG TABLET PO PRN ×3 (06:30→17:27)
--- NOTE | 2022-10-13 08:19 | Diagnostic Imaging Report ---
PROCEDURE: CT head and CT cervical spine without contrast. TECHNIQUE: Multiple contiguous axial images were obtained through the brain and cervical spine without the use of intravenous contrast. Sagittal and coronal reformations through the cervical spine were then performed. Auto Exposure Controls were utilized during the CT exam to meet ALARA standards for radiation dose reduction. INDICATION: Headache and neck pain after fall. COMPARISON: CT of the head on 11/19/2014. FINDINGS: No acute intracranial hemorrhage. The monzon-white matter differentiation is preserved. No midline shift or mass effect. No intracranial mass or fluid collection. The ventricles and cortical sulci are normal. The subarachnoid spaces are maintained. No Chiari malformation. The sella is normal. The globes and orbits are normal. Skull is intact. The paranasal sinuses and mastoids are clear. Straightening of the cervical lordosis. Mild multilevel disc height loss. Normal facet joints. No acute fracture or dislocation of the cervical spine. No high-grade spinal canal or neuroforaminal stenosis. The soft tissues are normal. Included lung apices are normal. IMPRESSION: No acute intracranial hemorrhage. No large vascular territory deutsch-white loss. No intracranial mass, midline shift, or hydrocephalus. No acute fracture or dislocation of the cervical spine. Dictated by: Dictated on workstation # [id number]
--- NOTE | 2022-10-13 10:55 | Short Stay Summary-Hospitalist ---
CRISTOBALDANNAEL Boyer 10/13/22 1055: History of Present Illness HPI/Chief Complaint 32-year-old female brought to the ED via EMS after a syncopal episode on 10/12. Patient does not remember the episode, woke up and was on the floor, had some superficial scrapes on the left side of her face. While with EMS, her HR dropped to 25, then the patient was pulseless for approximately 5 seconds before spontaneously regaining normal pulse and rhythm. She was seen earlier that day in [place] and diagnosed with COVID, has been having some abdominal discomfort. She notes that this has happened previously, estimates about 8 times total, last when she was 16 and has never been worked up for this. While in the ED, the sand mill grinder registered nurse bone marrow transplant was called, Dr. Gross, who was concerned that this could be due to vasovagal syncope, recommended pacemaker. Patient is undecided about this decision and is wanting to wait to decide until meeting with the sand mill grinder in person. CT of the head and cervical spine showed nothing acute. Since admission, she has had no further episodes of syncope or near-syncope, reports that she feels well today other than some aches. Pulse remained in the 70s during the exam. Patient has no new complaints. Source: patient Exam Limitations: no limitations Date Seen 10/13/22 Time Seen by a Provider: 09:30 Attending Physician Shereen Moses MD PCP Admitting Physician: Luna Rollins DO Attending Physician: Luna Rollins DO Referring Physician Date of Admission Oct 13, 2022 at 01:31 Home Medications & Allergies Home Medications Reviewed patient Home Medication Reconciliation performed by pharmacy medication reconciliations injection maintenance technician and/or nursing. Patients Allergies have been reviewed. Allergies Allergies Coded Allergies Penicillins (Unverified Allergy, Unknown, 03/15/12) baclofen (Verified Adverse Reaction, Mild, 01/27/13) Past Medical/Social/Family Hx Patient Social History Tobacco Use?: Yes Smoking Status: Current Everyday Smoker Use of E-Cig and/or Vaping dev: Yes E-Cig or Vaping type used: Nicotine E-Cig and/or Vaping Freq: Current Everyday User Substance use?: No Alcohol Use?: No Pt stated abuse/neglect: No Immunizations Up To Date Influenza Vaccine Up-to-Date: No; Not Current First/Initial COVID19 Vaccinat: unknown date Second COVID19 Vaccination Bishop: unknown date Tetanus Booster (TDap): Unknown Hepatitis A: No Hepatitis B: No TB Skin Test: None Current Status status: No status: No Advance Directives: No Communicates: Verbally Primary Language: Hungarian Preferred Spoken Language: Hungarian Is interpretation needed?: No Sensory deficits: Vision impairment Implanted or Applied Medical D: Orthopedic hardware Review of Systems Constitutional: No chills, No fever EENTM: No hearing loss, No blurred vision Respiratory: No cough, No dyspnea on exertion Cardiovascular: No chest pain, No palpitations Gastrointestinal: abdominal pain (mild abdominal discomfort, nontender); No nausea, No vomiting Genitourinary: No dysuria, No hematuria Musculoskeletal: No back pain, No neck pain Skin: No change in color, No change in hair/nails Psychiatric/Neurological: Denies Numbness; Tingling (Reports feeling tingling sensation in extremities before syncope, no tingling since); Denies Weakness Physical Exam Physical Exam Vital Signs Vital Signs - First Documented 10/12/22 20:50 Pulse 91 Resp 16 B/P (MAP) 127/103 (111) Pulse Ox 94 O2 Delivery Room Air Capillary Refill : Less Than 3 Seconds Height, Weight, BMI Height: 5'1.00" Weight: 205lbs. 6.0oz. 93.557276cc; 34.95 BMI Method:Stated General Appearance: No Apparent Distress, WD/WN HEENT: PERRL/EOMI, Other (abrasions over left upper face) Neck: Normal Inspection, Tender Midline (Upper posterior c-spine) Respiratory: Lungs Clear, Normal Breath Sounds, No Accessory Muscle Use Cardiovascular: Regular Rate, Rhythm, No Edema, No Murmur, Normal Peripheral Pulses Gastrointestinal: Normal Bowel Sounds, Non Tender, Soft Rectal: Deferred Back: No Vertebral Tenderness Extremity: Normal Inspection, Non Tender, No Pedal Edema Neurologic/Psychiatric: Alert, Oriented x3, Normal Mood/Affect Skin: Normal Color, Warm/Dry Lymphatic: No Adenopathy Results Results/Procedures Labs Laboratory Tests 10/12/22 20:54 Patient resulted labs reviewed. Imaging: Reviewed Imaging Films, Reviewed Imaging Report Short Stay Diagnosis Discharge Diagnosis-Short Stay Admission Diagnosis Syncope Final Discharge Diagnosis Syncope Conclusion Plan Multiple syncopal episodes: Cardiology consulted, appreciate recs, possibly vasovagal, no episodes since admission Bradycardia: No episodes of bradycardia since admission, HR has been in the 70s, monitoring with telemetry Hx of alcohol abuse: alcohol screen negative, patient reports she has been sober for several years Hx of illicit drug use: patient reports she has not used in several years HLD: Labs showed mildly elevated cholesterol of 211, LDL of 150, recommend following outpatient with PCP LUNA ROLLINS DO 10/14/22 0440: History of Present Illness HPI/Chief Complaint CC: Symptomatic bradycardia in need of pacemaker HPI: This is a 32yoWF clinic patient of [facility] who presented to the ER with syncopal episode with HR documented at 20. She has had multiple episodes in the past. Cardiology evaluated her to have a need for pacemaker and she was transferred to [facility]. Source: patient Exam Limitations: no limitations Past Medical/Social/Family Hx Patient Social History Marrital Status: single Employed/Student: unemployed Smoking Status: Former Smoker Review of Systems Constitutional: see HPI, dizziness, other (syncope) Physical Exam Physical Exam General Appearance: No Apparent Distress, WD/WN, Chronically ill, Obese Respiratory: Lungs Clear, No Accessory Muscle Use Cardiovascular: Regular Rate, Rhythm Neurologic/Psychiatric: Alert, Oriented x3, No Motor/Sensory Deficits, Normal Mood/Affect Short Stay Diagnosis Discharge Diagnosis-Short Stay Admission Diagnosis Assessment: Syncope due to bradycardia COVID Obesity Plan: Appreciate Cardiology Final Discharge Diagnosis Assessment: Syncope due to bradycardia COVID Obesity Plan: Appreciate Cardiology Conclusion Plan Transfer Supervisory-Addendum Brief Verification & Attestation Participated in pt care: history, MDM, physical Personally performed: exam, history, MDM, supervision of care Care discussed with: Medical Student Procedures: n/a Results interpretation: Verified all documentation Verification and Attestation of Medical Student E/M Service A medical student performed and documented this service in my presence. I reviewed and verified all information documented by the medical student and made modifications to such information, when appropriate. I personally performed the physical exam and medical decision making. Luna Rollins Oct 14, 2022,04:36 EL RICHARDSON Oct 13, 2022 10:55 LUNA ROLLINS DO Oct 14, 2022 04:40
--- NOTE | 2022-10-13 13:02 | Consultation-Cardiology ---
HPI-Cardiology Cardiology Consultation: Date of Consultation 10/13/22 Date of Admission Attending Physician Shereen Moses MD Admitting Physician Admitting Physician: Luna Rey DO Attending Physician: Luna Rey DO Consulting Physician Qiana CASTELLANOS MD HPI: Time Seen by a Provider: 12:00 Chief Complaint: Syncope This is a 32-year-old lady with history of seizure disorder. She had an episode of syncope. While EMS were there she had an episode of passing out with significant bradycardia with heart rate in the 20s and a long pause over 5 to 6 seconds. According to the patient she had another episode around 2 to 3 months ago. She denies any drug abuse Review of Systems-Cardiology Review of Systems Constitutional: no symptoms reported Eyes: no symptoms reported Ears/Nose/Throat: no symptoms reported Respiratory: no symptoms reported Cardiovascular: syncope Gastrointestinal: no symptoms reported Genitourinary: no symptoms reported : No TPP-[id number] Hx Patient Social History Smoking Status: Current Everyday Smoker 2nd Hand Smoke Exposure: No Alcohol Use?: No Pt feels they are or have been: No Immunizations Up To Date Tetanus Booster (TDap): Unknown Date of Influenza Vaccine: Jan 31, 2013 Past Medical History PMH As described under Assessment. Family Medical History Family History: Family history: Asthma 03 MOTHER Family history: Cardiovascular disease 03 MOTHER Family history: Diabetes mellitus GRANDFATHER (MATERNAL) Family history: Hypertension 03 MOTHER History of - respiratory disease 03 MOTHER Allergies and Home Medications Allergies Coded Allergies: Penicillins (Unverified Allergy, Unknown, 03/15/12) baclofen (Verified Adverse Reaction, Mild, 01/27/13) Patient Home Medication List Home Medication List Reviewed: Yes Acetaminophen (Acetaminophen) 500 Mg Tablet, 1,000 MG PO Q8H Prescribed by: MALI HOLLOWAY on 04/14/18 1335 Lamotrigine (Lamotrigine) 100 Mg Tablet, 200 MG PO DAILY, (Reported) Entered as Reported by: MIRIAM GRAF on 10/13/221422 Last Action: Edited Naltrexone HCl (Naltrexone HCl) 50 Mg Tablet, 50 MG PO DAILY, (Reported) Entered as Reported by: MIRIAM GRAF on 10/13/221422 Last Action: New Order Paliperidone (Paliperidone ER) 6 Mg Tab.er.24, 4.5 MG PO DAILY, (Reported) Entered as Reported by: MIRIAM GRFA on 10/13/221422 Last Action: Edited Quetiapine Fumarate (Quetiapine Fumarate) 50 Mg Tablet, 50 MG PO HS, (Reported) Entered as Reported by: MIRIAM GRAF on 10/13/221422 Last Action: New Order Discontinued Medications Buprenorphine HCl (Buprenorphine HCl) 8 Mg Tab.subl, 24 MG SL DAILY, (Reported) Discontinued Reason: No Longer Taking Entered as Reported by: KRISS HARRISON on 04/11/181217 Last Action: Discontinued Docusate Sodium (Docusate Sodium) 100 Mg Capsule, 100 MG PO BID Discontinued Reason: No Longer Taking Prescribed by: MALI HOLLOWAY on 04/14/181334 Last Action: Discontinued Doxycycline Hyclate (Doxycycline Hyclate) 100 Mg Tablet, 100 MG PO BID Discontinued Reason: No Longer Taking Prescribed by: JOCELINE GREEN on 08/14/211737 Last Action: Discontinued Furosemide (Lasix) 20 Mg Tablet, 20 MG PO DAILY Discontinued Reason: No Longer Taking Prescribed by: MALI HOLLOWAY on 04/14/181334 Last Action: Discontinued Ibuprofen (Ibu) 600 Mg Tablet, 600 MG PO Q6H Discontinued Reason: No Longer Taking Prescribed by: MALI HOLLOWAY on 04/14/181334 Last Action: Discontinued Vit W-Ca,Fe,FA(<1 mg) ( Formula) 1 Each Tablet, 1 EACH PO DAILY, (Reported) Discontinued Reason: No Longer Taking Entered as Reported by: KRISS HARRISON on 04/11/181217 Last Action: Discontinued Sulfamethoxazole/Trimethoprim (Bactrim Ds Tablet) 1 Each Tablet, 1 EACH PO BID Discontinued Reason: No Longer Taking Prescribed by: JAY DURANT on 11/20/19 0828 Last Action: Discontinued Sulfamethoxazole/Trimethoprim (Bactrim Ds Tablet) 1 Each Tablet, 1 EACH PO BID Discontinued Reason: No Longer Taking Prescribed by: JOCELINE GREEN on 08/14/211737 Last Action: Discontinued [Oxycodone Hcl] 5 MG TAB, 10 MG PO Q4H PRN for PAIN-SEVERE Discontinued Reason: No Longer Taking Prescribed by: MALI HOLLOWAY on 04/14/181334 Last Action: Discontinued Exam Vital Signs Vital Signs Date Time Temp Pulse Resp B/P (MAP) Pulse Ox O2 Delivery O2 Flow Rate FiO2 10/13/22 12:30 36.5 87 18 130/100 (110) 92 Room Air Physical Exam Constitutional: No respiratory distress. Chest: Clear to auscultation bilaterally. CVS: Regular rate and rhythm. No murmur. Neuro: Nonfocal. No pedal edema. Labs Laboratory Tests Test 10/12/22 20:54 10/12/22 22:17 10/13/22 05:17 Range/Units White Blood Count 6.0 4.3-11.0 10^3/uL Red Blood Count 4.54 3.80-5.11 10^6/uL Hemoglobin 13.8 11.5-16.0 g/dL Hematocrit 40 35-52 % Mean Corpuscular Volume 88 80-99 fL Mean Corpuscular Hemoglobin 30 25-34 pg Mean Corpuscular Hemoglobin Concent 35 32-36 g/dL Red Cell Distribution Width 12.2 10.0-14.5 % Platelet Count 293 130-400 10^3/uL Mean Platelet Volume 9.4 9.0-12.2 fL Immature Granulocyte % (Auto) 2 % Neutrophils (%) (Auto) 73 42-75 % Lymphocytes (%) (Auto) 13 12-44 % Monocytes (%) (Auto) 12 0-12 % Eosinophils (%) (Auto) 0 0-10 % Basophils (%) (Auto) 1 0-10 % Neutrophils # (Auto) 4.4 1.8-7.8 10^3/uL Lymphocytes # (Auto) 0.8 L 1.0-4.0 10^3/uL Monocytes # (Auto) 0.7 0.0-1.0 10^3/uL Eosinophils # (Auto) 0.0 0.0-0.3 10^3/uL Basophils # (Auto) 0.1 0.0-0.1 10^3/uL Immature Granulocyte # (Auto) 0.1 0.0-0.1 10^3/uL Percent Immature Platelet Fraction 1.3 0.0-7.6 % Prothrombin Time 12.8 12.2-14.7 SEC INR Comment 0.9 0.8-1.4 Activated Partial Thromboplast Time 20 L 24-35 SEC Sodium Level 138 135-145 MMOL/L Potassium Level 3.7 3.6-5.0 MMOL/L Chloride Level 106 98-107 MMOL/L Carbon Dioxide Level 21 21-32 MMOL/L Anion Gap 11 5-14 MMOL/L Blood Urea Nitrogen 9 7-18 MG/DL Creatinine 0.75 0.60-1.30 MG/DL Estimat Glomerular Filtration Rate 107 BUN/Creatinine Ratio 12 Glucose Level 97 70-105 MG/DL Calcium Level 8.8 8.5-10.1 MG/DL Corrected Calcium 8.8 8.5-10.1 MG/DL Magnesium Level 1.9 1.6-2.4 MG/DL Total Bilirubin 0.4 0.1-1.0 MG/DL Aspartate Amino Transf (AST/SGOT) 20 5-34 U/L Alanine Aminotransferase (ALT/SGPT) 12 0-55 U/L Alkaline Phosphatase 46 40-136 U/L Myoglobin 21.6 10.0-92.0 NG/ML Troponin I < 0.028 <0.028 NG/ML Total Protein 7.0 6.4-8.2 GM/DL Albumin 4.0 3.2-4.5 GM/DL Lipase 19 8-78 U/L Serum Alcohol < 10 <10 MG/DL Serum Test, Qualitative NEGATIVE NEGATIVE Triglycerides Level 102 <150 MG/DL Cholesterol Level 211 H < 200 MG/DL LDL Cholesterol Direct 150 H 1-129 MG/DL VLDL Cholesterol 20 5-40 MG/DL HDL Cholesterol 50 40-60 MG/DL ECG Impression ECG Initial ECG Rhythm: Normal Sinus Initial ECG Intervals: Normal Initial ECG Impression: Normal A/P-Cardiology Assessment/Admission Diagnosis Seizure disorder, Syncope, Severe bradycardia and pauses Plan This is a 32-year-old lady who has history of seizure disorder and is on antelmo ropriate seizure medications. She had an episode of syncope, EMS were called. In presence of EMS she had another episode of syncope with heart rate in the 20s and a long pause. CPR was almost being initiated when her heart rate improved. I discussed at length with the patient. She has had previous episodes of syncope in the recent past. This is an indication for permanent pacing. I gave her the option of a dual-chamber transvenous system or a leadless pacemaker. She preferred the leadless pacemaker. We do not offer leadless pacemaker here in [facility]. I will refer her to Dr. Yobany Solorzano at [facility] for a leadless pacemaker. I did discuss with the patient that there is a 1% risk of complication including . However I am sure Dr. Solorzano will discuss further the details of the procedure at [facility]. Qiana CASTELLANOS MD Oct 13, 2022 13:02
[2022-10-13] MEDS ORDERED: QUET50TA23 PO (14:23)
[2022-10-13] MEDS ORDERED: PALI6TAB6 PO (14:23)
[2022-10-13] MEDS ORDERED: LAMO100T5 PO (14:23)
[2022-10-13] MEDS ORDERED: NALT50TA PO (14:23)
== END 2022-10-13 20:34 | disposition critical access hospital (66) ==
LOC: EDUNIT# 20:48 → ER 20:50 → CSD 10-13 01:31
PROVIDERS: ADMIT Internal Medicine; ATTEND Internal Medicine
DX: R55 Syncope and collapse (principal); U07.1 COVID-19; R00.1 Bradycardia, unspecified; E66.9 Obesity, unspecified; G40.909 Epilepsy, unspecified, not intractable, without status epilepticus; Z68.35 Body mass index [BMI] 35.0-35.9, adult; Z87.891 Personal history of nicotine dependence
CPT/HCPCS: 70450; 71045; 72125; 80053; 80061; 83690; 83735; 83874; 84484; 84703; 85025; 85610; 85730; 93005; 93041; 96376; 99284; G0378; G0480; 36415; 80320